=== PATIENT | female | born 1990 | race African-American/Black ===

== ENCOUNTER 2017-03-10 11:54 | Emergency (ER) | payer BC, OTHER ==
[~2017-03-10] VITALS: Ht 162.6 cm; Wt 54.4 kg
[2017-03-10 12:32] VITALS: BP 127/89
--- NOTE | 2017-03-10 12:59 | PHYS DOC ---
Past Medical History Past Medical History: No Pertinent History, Migraines Past Surgical History: Additional Past Surgical Histo: c/s x4 Alcohol Use: Occasionally Drug Use: None Adult General Chief Complaint Chief Complaint: NAUSEA/VOMITING/DIARRHA HPI HPI Patient is a 27 year old female presents to the emergency department stating this morning when she got she states she did not feel quite right. She states that she vomited around 7:00 this morning she states that she went ahead and went to work and started having some palpitations and feeling as though she was having difficulty breathing. She states that she got to work and threw up around 10:00. She did try to drink some Sprite with no relief. She states that she was unable to keep it down. Patient states she does have a history of anxiety issues. Patient states that she will also need a note for work today. Review of Systems Review of Systems Constitutional: Denies fever or chills [] Eyes: Denies change in visual acuity, redness, or eye pain [] HENT: Denies nasal congestion or sore throat [] Respiratory: Denies cough c/o shortness of breath with heart racing Cardiovascular: No additional information not addressed in HPI [] GI: Denies abdominal pain, bloody stools or diarrhea. C/o nausea and vomiting x 2 today : Denies dysuria or hematuria [] Musculoskeletal: Denies back pain or joint pain [] Integument: Denies rash or skin lesions [] Neurologic: Denies headache, focal weakness or sensory changes [] Endocrine: Denies polyuria or polydipsia [] Current Medications Current Medications Current Medications Medications (Trade) Dose Ordered Sig/[facility] Start Time Stop Time Status Last Admin Dose Admin Hydroxyzine Pamoate (Vistaril) 50 mg 1X ONCE 03/10/17 13:15 03/10/17 13:16 DC 03/10/17 13:17 50 MG Allergies Allergies Allergies Coded Allergies Type Severity Reaction Last Updated Verified iodine Allergy Intermediate rash 12/12/14 Yes Physical Exam Physical Exam Constitutional: Well developed, well nourished, no acute distress, non-toxic appearance. [] HENT: Normocephalic, atraumatic, bilateral external ears normal, oropharynx moist, no oral exudates, nose normal. [] Eyes: PERRLA, EOMI, conjunctiva normal, no discharge. [] Neck: Normal range of motion, no tenderness, supple, no stridor. [] Cardiovascular:Heart rate regular rhythm, no murmur [] Lungs & Thorax: Bilateral breath sounds clear to auscultation [] Abdomen: Bowel sounds hypoactive, soft, no tenderness, no masses, no pulsatile masses. [] Skin: Warm, dry, no erythema, no rash. [] Back: No tenderness Extremities: No tenderness, no cyanosis, no clubbing, ROM intact, no edema. [] Neurologic: Alert and oriented X 3, normal motor function, normal sensory function, no focal deficits noted. [] Psychologic: Affect normal, judgement normal, mood normal. [] Current Patient Data Vital Signs Vital Signs Date Time Temp Pulse Resp B/P (MAP) Pulse Ox O2 Delivery O2 Flow Rate FiO2 03/10/17 12:32 98.0 72 18 127/89 (102) 100 98.0 Lab Values Laboratory Tests Test 03/10/17 11:59 03/10/17 12:45 POC Urine HCG, Qualitative Hcg negative (Negative) Urine Collection Type Unknown Urine Color Yellow Urine Clarity Clear Urine pH 5.0 Urine Specific [place] <=1.005 Urine Protein Negative mg/dL (NEG-TRACE) Urine Glucose (UA) Negative mg/dL (NEG) Urine Ketones (Stick) Negative mg/dL (NEG) Urine Blood Moderate (NEG) Urine Nitrite Negative (NEG) Urine Bilirubin Negative (NEG) Urine Urobilinogen Dipstick 0.2 mg/dL (0.2 mg/dL) Urine Leukocyte Esterase Negative (NEG) Urine RBC 1-2 /HPF (0-2) Urine WBC 0 /HPF (0-4) Urine Squamous Epithelial Cells Few /LPF Urine Bacteria Few /HPF (0-FEW) EKG EKG [] Radiology/Procedures Radiology/Procedures [] Course & Med Decision Making Course & Med Decision Making Pertinent Labs and Imaging studies reviewed. (See chart for details) Patient states that she is feeling much better and is ready to be discharged home. She is now requesting 2 days off of work. Patient will be discharged with recommendations to follow-up with a primary care physician in the next week. Signs and symptoms to return back to emergency department as been provided. Patient was encouraged to have a clear liquid diet for the next 24 hours. She' ll be discharged home on questions and concerns been answered at patient's bedside. [] Jenn Disclaimer Dragon Disclaimer This electronic medical record was generated, in whole or in part, using a voice recognition dictation system. Departure Departure Impression: Primary Impression: Anxiety Disposition: 01 HOME, SELF-CARE Condition: STABLE Referrals: NO PCP (PCP) Patient Instructions: Anxiety and Panic Attacks, [id number] Additional Instructions: Activity as tolerated. Learn relaxation techniques to prevent your anxiety. Clear liquid diet for the next 24 hours and she'll been nauseated and vomiting. Follow-up with your primary care physician in the next week. Return back to emergency prior signs symptoms of become worse. TIFFANY MO SHOT GRINDER OPERATOR Mar 10, 2017 12:58
[2017-03-10] MEDS ORDERED: hydrOXYzine PAMOATE 25 MG CAPSULE PO ONE (13:15)
[2017-03-10 13:23] LABS: BILIRUBIN,URINE NEGATIVE (NEG); GLUCOSE,URINE NEGATIVE (NEG); NITRITE,URINE NEGATIVE (NEG); PROTEIN,URINE NEGATIVE (NEG-TRACE); UROBILINOGEN,URINE 0.2 mg/dL (0.2 mg/dL)
[2017-03-10 13:24] LABS: BACTERIA,URINE FEW /HPF (0-FEW); SQUAMOUS EPITHELIAL CELL,UR FEW /LPF; WBC,URINE 0 /HPF (0-4)
== END 2017-03-10 14:59 | disposition home or self-care (01) ==
LOC: ER 11:54
DX: F41.9 Anxiety disorder, unspecified (principal); G43.909 Migraine, unspecified, not intractable, without status migrainosus
CPT/HCPCS: 81001; 81025; 99283; Q0177

== ENCOUNTER 2018-03-15 20:11 | Emergency (ER) | payer SELFPAY ==
[~2018-03-15] VITALS: Ht 167.6 cm; Wt 61.2 kg
[2018-03-15 21:11] VITALS: BP 117/58
--- NOTE | 2018-03-15 21:33 | PHYS DOC ---
Past Medical History Past Medical History: No Pertinent History, Migraines Past Surgical History: Additional Past Surgical Histo: c/s x4 Alcohol Use: Occasionally Drug Use: None Adult General Chief Complaint Chief Complaint: SORE THROAT HPI HPI Patient is a 28 year old -[place] female who presents to emergency department with complaints of a sore throat for the last day and a half. She denies any fever, cough, nasal congestion, runny nose, ear pain, rash, body aches, nausea, vomiting, or diarrhea. 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 Patient states that her boss sent her home when she complained of a sore throat earlier today and that she needs to be cleared before she can return to work. Review of Systems Review of Systems Constitutional: Denies fever or chills [] Eyes: Denies change in visual acuity, redness, or eye pain [] HENT: Denies nasal congestion , ear pain, or runny nose; reports sore throat for a day and half Respiratory: Denies cough, wheezing, or shortness of breath [] GI: Denies abdominal pain, nausea, vomiting, or diarrhea [] Integument: Denies rash or skin lesions [] Neurologic: Denies headache, focal weakness or sensory changes [] Allergies Allergies Allergies Coded Allergies Type Severity Reaction Last Updated Verified iodine Allergy Intermediate rash 12/12/14 Yes Physical Exam Physical Exam Constitutional: Well developed, well nourished, no acute distress, non-toxic appearance. [] HENT: Normocephalic, atraumatic, bilateral external ears normal, bilateral TMs normal, no erythema of posterior pharynx, oropharynx moist, no oral exudates, nose normal. [] Eyes: PERRLA,conjunctiva normal, no discharge. [] Neck: Normal range of motion, no tenderness, no lymphadenopathy, supple, no stridor. [] Cardiovascular:Heart rate regular rhythm, no murmur [] Lungs & Thorax: Bilateral breath sounds clear to auscultation [] Skin: Warm, dry, no erythema, no rash. [] Neurologic: Alert and oriented X 3, normal motor function, normal sensory function, no focal deficits noted. [] Psychologic: Affect normal, judgement normal, mood normal. [] Current Patient Data Vital Signs Vital Signs Date Time Temp Pulse Resp B/P (MAP) Pulse Ox O2 Delivery O2 Flow Rate FiO2 03/15/18 21:11 97.9 91 18 117/58 (77) 98 Room Air 97.9 EKG EKG [] Radiology/Procedures Radiology/Procedures [] Course & Med Decision Making Course & Med Decision Making Pertinent Labs and Imaging studies reviewed. (See chart for details) Patient is a 28-year-old female who presented to the emergency room with complaints of a sore throat for the last day and a half. Her vital signs are stable in the emergency department, rapid strep was negative. Physical exam is not concerning for strep pharyngitis. She encouraged to do warm saltwater gargles as needed for relief of discomfort. May take Tylenol or ibuprofen as needed for pain. Follow-up with primary care doctor in 1 -2 days. Return to the emergency room if symptoms are worsening. Patient verbalized an understanding of home care, medications, follow-up, and return to ED instructions and was in agreement with the plan of care. [] Dragon Disclaimer Dragon Disclaimer This electronic medical record was generated, in whole or in part, using a voice recognition dictation system. Departure Departure Impression: Primary Impression: Pharyngitis Disposition: HOME, SELF-CARE Condition: STABLE Referrals: NO PCP (PCP) Patient Instructions: Viral Pharyngitis Additional Instructions: Recommend warm saltwater gargles as needed for relief of discomfort. May take Tylenol or ibuprofen as needed for pain. Follow-up with primary care doctor in 1 -2 days. Return to the emergency room if symptoms are worsening. [] Problem Qualifiers Primary Impression: Pharyngitis Pharyngitis/tonsillitis etiology: unspecified etiology Qualified Codes: J02.9 - Acute pharyngitis, unspecified HORTENCIA POOLE NUCLE[employer] SECURITY OFFICER Mar 15, 2018 21:33
== END 2018-03-15 21:41 | disposition home or self-care (01) ==
LOC: ER 20:11
DX: J02.9 Acute pharyngitis, unspecified (principal); G43.909 Migraine, unspecified, not intractable, without status migrainosus; Z98.890 Other specified postprocedural states; Z91.041 Radiographic dye allergy status
CPT/HCPCS: 87070; 87880; 99283

== ENCOUNTER 2018-11-23 14:26 | Emergency (ER) | payer SELFPAY ==
[~2018-11-23] VITALS: Ht 162.6 cm; Wt 65.8 kg
[2018-11-23] MEDS ORDERED: AMOX1TAB61 PO (15:14)
--- NOTE | 2018-11-23 15:14 | PHYS DOC ---
Past Medical History Past Medical History: No Pertinent History, Migraines Past Surgical History: , Tubal ligation Additional Past Surgical Histo: c/s x4 Smoking: Quit Greater Than 1 Year Alcohol Use: Occasionally Drug Use: None Adult General Chief Complaint Chief Complaint: DENTAL PROBLEM HPI HPI She is a 28-year-old female that presents with dental pain this lasted a day and a half. Rates her pain 10 out of 10 and states it is sharp and throbbing. Denies associated symptoms. Has dental appointment scheduled for in the morning. Review of Systems Review of Systems Constitutional: Denies fever or chills [] Eyes: Denies change in visual acuity, redness, or eye pain [] HENT: Denies nasal congestion or sore throat. Reports dental pain. Respiratory: Denies cough or shortness of breath [] Cardiovascular: No additional information not addressed in HPI [] GI: Denies abdominal pain, nausea, vomiting, bloody stools or diarrhea [] : Denies dysuria or hematuria [] Musculoskeletal: Denies back pain or joint pain [] Integument: Denies rash or skin lesions [] Neurologic: Denies headache, focal weakness or sensory changes [] Endocrine: Denies polyuria or polydipsia [] Complete systems were reviewed and found to be within normal limits, except as documented in this note. Current Medications Current Medications Current Medications Medications (Trade) Dose Ordered Sig/Ap Start Time Stop Time Status Last Admin Dose Admin Bupivacaine HCl (Sensorcaine-Mpf 0.25%) 10 ml 1X ONCE 11/23/18 15:15 11/23/18 15:16 DC 11/23/18 15:15 10 ML Allergies Allergies Allergies Coded Allergies Type Severity Reaction Last Updated Verified iodine Allergy Intermediate rash 12/12/14 Yes Physical Exam Physical Exam Constitutional: Well developed, well nourished, no acute distress, non-toxic appearance. [] HENT: Normocephalic, atraumatic, bilateral external ears normal, oropharynx moist, no oral exudates, nose normal. Cavity and infection at tooth # 32 on the lower right side. Eyes: PERRLA, EOMI, conjunctiva normal, no discharge. [] Neck: Normal range of motion, no tenderness, supple, no stridor. [] Cardiovascular:Heart rate regular rhythm, no murmur [] Lungs & Thorax: Bilateral breath sounds clear to auscultation [] Abdomen: Bowel sounds normal, soft, no tenderness, no masses, no pulsatile masses. [] Skin: Warm, dry, no erythema, no rash. [] Back: No tenderness, no CVA tenderness. [] Extremities: No tenderness, no cyanosis, no clubbing, ROM intact, no edema. [] Neurologic: Alert and oriented X 3, normal motor function, normal sensory function, no focal deficits noted. [] Psychologic: Affect normal, judgement normal, mood normal. [] Current Patient Data Vital Signs Vital Signs Date Time Temp Pulse Resp B/P (MAP) Pulse Ox O2 Delivery O2 Flow Rate FiO2 11/23/18 14:35 98.2 62 14 127/68 (87) 99 Room Air 98.2 EKG EKG [] Radiology/Procedures Radiology/Procedures Performed an inferior alveolar nerve block. Injected 2 mL of Bupivacaine. Course & Med Decision Making Course & Med Decision Making Pertinent Labs and Imaging studies reviewed. (See chart for details) Discussed with patients the options based on signs and symptoms and will perform a dental block. Patient is agreeable. She will then follow up with [facility] for her pre-existing appointment in the morning. Dragon Disclaimer Dragon Disclaimer This electronic medical record was generated, in whole or in part, using a voice recognition dictation system. Departure Departure Impression: Primary Impression: Pain, dental Disposition: 01 HOME, SELF-CARE Condition: STABLE Referrals: MATI PERALES MD (PCP) Patient Instructions: Dental Pain, [id number] Additional Instructions: Follow up for your dental appointment tomorrow. Scripts Hydrocodone/Apap 5-325 (NORCO 5-325 TABLET) 1 Each Tablet 1 TAB PO TID PRN for PAIN for 1 Day, #3 TAB Prov: ZEYAD CASTAÑEDA APRN 11/23/18 Amoxicillin/Potassium Clav (AUGMENTIN 875-125 TABLET) 1 Each Tablet 1 TAB PO BID for 7 Days, #14 TAB Prov: ZEYAD CASTAÑEDA APRN 11/23/18 ZEYAD CASTAÑEDA APRN November 23, 2018 15:14
[2018-11-23] MEDS ORDERED: BUPIVACAINE MPF 0.25% 10 ML VIAL. IJ ONE (15:15)
[2018-11-23] MEDS ORDERED: HYDR-3164 PO (15:55)
== END 2018-11-23 16:05 | disposition home or self-care (01) ==
LOC: ER 14:26
DX: K08.89 Other specified disorders of teeth and supporting structures (principal); G43.909 Migraine, unspecified, not intractable, without status migrainosus; Z98.890 Other specified postprocedural states; Z98.51 Tubal ligation status; Z87.891 Personal history of nicotine dependence; Z91.041 Radiographic dye allergy status
CPT/HCPCS: 64400; 99284; J3490

== ENCOUNTER 2019-04-18 23:46 | Emergency (ER) | payer SELFPAY ==
[~2019-04-18] VITALS: Ht 162.6 cm; Wt 59.0 kg
[~2019-04-18 23:46] MED LIST: AMOX1TAB61 PO; HYDR-3164 PO
[2019-04-19] VITALS: BP 127/64
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
[2019-04-19] MEDS ORDERED: TRAM50TA PO (02:49)
[2019-04-19] MEDS ORDERED: TETRACAINE 0.5% OPHTH SOLUTION 4ML BOTTLE. OD ONE (03:30)
[2019-04-19] MEDS ORDERED: FLUORESCEIN OPHTH TEST STRIP. OD ONE (03:30)
[2019-04-19] MEDS ORDERED: KETOROLAC 60 MG/2 ML VIAL. IM ONE (04:00)
== END 2019-04-19 03:47 | disposition home or self-care (01) ==
LOC: ER 23:46
DX: S00.83XA Contusion of other part of head, initial encounter (principal); S00.11XA Contusion of right eyelid and periocular area, initial encounter; H57.89 Other specified disorders of eye and adnexa; G43.909 Migraine, unspecified, not intractable, without status migrainosus; Z88.8 Allergy status to other drugs, medicaments and biological substances; W51.XXXA Accidental striking against or bumped into by another person, initial encounter; Y93.89 Activity, other specified; Y92.89 Other specified places as the place of occurrence of the external cause; Y99.8 Other external cause status
CPT/HCPCS: 70450; 70486; 96372; 99284; J1885

== ENCOUNTER 2020-05-26 12:45 | Emergency (ER) | payer SELFPAY ==
[~2020-05-26] VITALS: Ht 162.6 cm; Wt 63.0 kg
[~2020-05-26 12:45] MED LIST changes: +TRAM50TA PO
[2020-05-26 14:00] LABS: BASO # 0.1 x10^3/uL (0.0-0.2); BASO % 1 % (0-3); EOS # 0.2 x10^3/uL (0.0-0.7); EOS % 3 % (0-3); HEMATOCRIT 32.4 % (36.0-47.0); LYMPH # 1.7 x10^3/uL (1.0-4.8); LYMPH % 22 % (24-48); MEAN CORPUSCULAR HEMOGLOBIN 30 pg (25-35); MEAN CORPUSCULAR HGB CONC 34 g/dL (31-37); MEAN CORPUSCULAR VOLUME 89 fL (79-100); MONO # 0.8 x10^3/uL (0.0-1.1); MONO % 10 % (0-9); NEUT # 4.9 x10^3/uL (1.8-7.7); NEUT % 64 % (31-73); PLATELET COUNT 291 x10^3/uL (140-400); RED BLOOD COUNT 3.64 x10^6/uL (3.50-5.40); RED CELL DISTRIBUTION WIDTH 14.4 % (11.5-14.5); WHITE BLOOD COUNT 7.6 x10^3/uL (4.0-11.0)
[2020-05-26] MEDS ORDERED: IV NORMAL SALINE 1000ML BAG 1,000 ML IV ONE (14:00)
[2020-05-26] MEDS ORDERED: ONDANSETRON PF 4 MG/2 ML VIAL. IVP ONE (14:00)
[2020-05-26 14:01] LABS: CALCIUM 8.9 mg/dL (8.5-10.1); CREATININE 0.9 mg/dL (0.6-1.0); GFR 87.8; POTASSIUM 3.4 mmol/L (3.5-5.1)
[2020-05-26 14:07] LABS: ALBUMIN 3.7 g/dL (3.4-5.0); ALBUMIN/GLOBULIN RATIO 1.1 (1.0-1.7); TOTAL BILIRUBIN 0.3 mg/dL (0.2-1.0); TOTAL PROTEIN 7.1 g/dL (6.4-8.2)
[2020-05-26] MEDS ORDERED: DIPH1TAB PO (15:17)
[2020-05-26] MEDS ORDERED: ONDA4TAB7 PO (15:17)
--- NOTE | 2020-05-26 15:17 | ED.ADGEN ---
Past Medical History Past Medical History: Bronchitis, Migraines Past Surgical History: , Tubal ligation Additional Past Surgical Histo: c/s x4 Smoking Status: Current Some Day Smoker Alcohol Use: None Drug Use: None General Adult EDM: Chief Complaint: ABDOMINAL PAIN HPI: HPI: Patient is a 30-year-old female who presents to the emergency room complaining of diarrhea, nausea, vomiting. She states that this started a couple days ago after eating [employer] chicken. She has been able to continue to eat and drink without difficulty. She states that the vomiting has been mild. She is having multiple episodes of diarrhea a day. She occasionally gets some discomfort with the vomiting or diarrhea but otherwise does not have any abdominal pain. She does not have any fever. She denies URI symptoms, chest pain, shortness of breath, chills, sweats, dysuria, hematuria, vaginal discharge, vaginal bleeding, concerns about STDs. Review of Systems: Review of Systems: Complete ROS is negative unless otherwise documented in HPI Current Medications: Current Medications Medications (Trade) Dose Ordered Sig/Ap Start Time Stop Time Status Last Admin Dose Admin Ondansetron HCl (Zofran) 4 mg 1X ONCE 05/26/20 14:00 05/26/20 14:01 DC 05/26/20 14:05 4 MG Sodium Chloride 1,000 ml @ 1,000 mls/hr 1X ONCE 05/26/20 14:00 05/26/20 14:59 DC 05/26/20 14:05 1,000 MLS/HR Allergies: Allergies: Allergies Coded Allergies Type Severity Reaction Last Updated Verified iodine Allergy Intermediate rash 12/12/14 Yes Physical Exam: PE: General: Awake, alert, NAD. Well Nourished, well hydrated. Cooperative HEENT: Atraumatic, EOMI, PERRL, airway patent, moist oral mucosa Neck: Supple, trachea midline Respiratory: CTA bilaterally, normal effort, no wheezing/crackles CV: RRR, no murmur, cap refill <2 GI: Soft, nondistended, nontender, no masses MSK: No obvious deformities Skin: Warm, dry, intact Neuro: A&O x3, speech NL, sensory and motor grossly intact, no focal deficits Psych: Normal affect, normal mood, not suicidal or homicidal Current Patient Data: Labs: Laboratory Tests Test 05/26/20 13:17 05/26/20 13:41 05/26/20 15:51 POC Urine HCG, Qualitative Hcg negative (Negative) White Blood Count 7.6 x10^3/uL (4.0-11.0) Red Blood Count 3.64 x10^6/uL (3.50-5.40) Hemoglobin 11.0 g/dL (12.0-15.5) L Hematocrit 32.4 % (36.0-47.0) L Mean Corpuscular Volume 89 fL (79-100) Mean Corpuscular Hemoglobin 30 pg (25-35) Mean Corpuscular Hemoglobin Concent 34 g/dL (31-37) Red Cell Distribution Width 14.4 % (11.5-14.5) Platelet Count 291 x10^3/uL (140-400) Neutrophils (%) (Auto) 64 % (31-73) Lymphocytes (%) (Auto) 22 % (24-48) L Monocytes (%) (Auto) 10 % (0-9) H Eosinophils (%) (Auto) 3 % (0-3) Basophils (%) (Auto) 1 % (0-3) Neutrophils # (Auto) 4.9 x10^3/uL (1.8-7.7) Lymphocytes # (Auto) 1.7 x10^3/uL (1.0-4.8) Monocytes # (Auto) 0.8 x10^3/uL (0.0-1.1) Eosinophils # (Auto) 0.2 x10^3/uL (0.0-0.7) Basophils # (Auto) 0.1 x10^3/uL (0.0-0.2) Sodium Level 140 mmol/L (136-145) Potassium Level 3.4 mmol/L (3.5-5.1) L Chloride Level 106 mmol/L (98-107) Carbon Dioxide Level 23 mmol/L (21-32) Anion Gap 11 (6-14) Blood Urea Nitrogen 6 mg/dL (7-20) L Creatinine 0.9 mg/dL (0.6-1.0) Estimated GFR (Cockcroft-Gault) 87.8 BUN/Creatinine Ratio 7 (6-20) Glucose Level 92 mg/dL (70-99) Calcium Level 8.9 mg/dL (8.5-10.1) Total Bilirubin 0.3 mg/dL (0.2-1.0) Aspartate Amino Transferase (AST) 18 U/L (15-37) Alanine Aminotransferase (ALT) 22 U/L (14-59) Alkaline Phosphatase 61 U/L (46-116) Total Protein 7.1 g/dL (6.4-8.2) Albumin 3.7 g/dL (3.4-5.0) Albumin/Globulin Ratio 1.1 (1.0-1.7) Lipase 100 U/L (73-393) Urine Collection Type Unknown Urine Color Yellow Urine Clarity Clear Urine pH 7.5 (<5.0-8.0) Urine Specific [place] 1.015 (1.000-1.030) Urine Protein Negative mg/dL (NEG-TRACE) Urine Glucose (UA) Negative mg/dL (NEG) Urine Ketones (Stick) 15 mg/dL (NEG) Urine Blood Negative (NEG) Urine Nitrite Negative (NEG) Urine Bilirubin Negative (NEG) Urine Urobilinogen Dipstick 1.0 mg/dL (0.2 mg/dL) Urine Leukocyte Esterase Small (NEG) Urine RBC 0 /HPF (0-2) Urine WBC 11-20 /HPF (0-4) Urine Squamous Epithelial Cells Many /LPF Urine Bacteria Few /HPF (0-FEW) Urine Mucus Slight /LPF Laboratory Tests 05/26/20 13:41 Laboratory Tests 05/26/20 13:41 Vital Signs: Vital Signs Date Time Temp Pulse Resp B/P (MAP) Pulse Ox O2 Delivery O2 Flow Rate FiO2 05/26/20 15:42 68 140/95 (110) 99 Room Air 05/26/20 13:09 98.2 16 98.2 EKG: EKG: [] Heart Score: Risk Factors: Risk Factors: DM, Current or recent (<one month) smoker, HTN, HLP, family history of CAD, obesity. Risk Scores: Score 0 - 3: 2.5% MACE over next 6 weeks - Discharge Home Score 4 - 6: 20.3% MACE over next 6 weeks - Admit for Clinical Observation Score 7 - 10: 72.7% MACE over next 6 weeks - Early Invasive Strategies Radiology/Procedures: Radiology/Procedures: [] Course & Med Decision Making: Course & Med Decision Making Pertinent Labs and Imaging studies reviewed. (See chart for details) Patient is a 30-year-old female who presents to the emergency room complaining of diarrhea and intermittent vomiting. Overall patient is well-appearing. She was given fluids and nausea medication with significant improvement in symptoms. Abdominal labs were done to evaluate for infection, liver dysfunction, gallbladder dysfunction, pancreatitis, UTIs. Lab work is unremarkable. Will treat symptomatically. Patient's test results and vitals while in the ED were fully reviewed and discussed with the patient. Patient is stable and at this time does not need admission to the hospital. We have discussed strict return precautions and the importance of following up with their Primary Care Physician. Patient stated understanding and was given an opportunity to ask any questions. Patient is in agreement with plan. Dragon Disclaimer: Dragon Disclaimer: This electronic medical record was generated, in whole or in part, using a voice recognition dictation system. Departure Departure Impression: Primary Impression: Gastroenteritis Disposition: 01 DC HOME SELF CARE/HOMELESS Condition: STABLE Referrals: MATI PERALES MD (PCP) Patient Instructions: Diarrhea, Diet for Diarrhea, Adult Scripts Diphenoxylate Hcl/Atropine (LOMOTIL TABLET) 1 Each Tablet 1 TAB PO TID PRN for DIARRHEA, #10 TAB Prov: CHUN ABRAMS MD 05/26/20 Ondansetron Hcl (ZOFRAN) 4 Mg Tablet 1 TAB PO PRN Q6-8HRS for nausea, #12 TAB Prov: CHUN ABRAMS MD 05/26/20 CHUN ABRAMS MD May 26, 2020 15:17
[2020-05-26 15:42] VITALS: BP 140/95
[2020-05-26 16:06] LABS: BILIRUBIN,URINE NEGATIVE (NEG); CLARITY,URINE CLEAR; COLOR,URINE YELLOW; NITRITE,URINE NEGATIVE (NEG); PH,URINE 7.5 (<5.0-8.0); PROTEIN,URINE NEGATIVE (NEG-TRACE)
[2020-05-26 16:32] LABS: BACTERIA,URINE FEW /HPF (0-FEW); RBC,URINE 0 /HPF (0-2)
== END 2020-05-26 16:54 | disposition home or self-care (01) ==
LOC: ER 12:45
DX: K52.9 Noninfective gastroenteritis and colitis, unspecified (principal); R11.2 Nausea with vomiting, unspecified; G43.909 Migraine, unspecified, not intractable, without status migrainosus; J42 Unspecified chronic bronchitis; Z98.51 Tubal ligation status; Z98.890 Other specified postprocedural states; Z87.891 Personal history of nicotine dependence; Z91.041 Radiographic dye allergy status
CPT/HCPCS: 36415; 80053; 81001; 81025; 83690; 85025; 96361; 96374; 99285; J2405; J7030

== ENCOUNTER 2020-09-11 05:33 | Emergency (ER) | payer SELFPAY ==
[~2020-09-11] VITALS: Ht 162.6 cm; Wt 63.6 kg
[~2020-09-11 05:33] MED LIST changes: +DIPH1TAB PO; +ONDA4TAB7 PO
[2020-09-11 05:43] VITALS: BP 139/76
[2020-09-11] MEDS ORDERED: AMOX1TAB61 PO (06:06)
[2020-09-11] MEDS ORDERED: PRED20TA PO (06:06)
[2020-09-11] MEDS ORDERED: CHLO15MO2 PO (06:06)
--- NOTE | 2020-09-11 06:06 | PHYS DOC ---
Past Medical History Past Medical History: Bronchitis, Migraines Past Surgical History: , Tubal ligation Additional Past Surgical Histo: c/s x4 Smoking Status: Current Some Day Smoker Alcohol Use: Occasionally Drug Use: None General Adult EDM: Chief Complaint: DENTAL PROBLEM HPI: HPI: 30-year-old female presents with 3 to 4-day history of left mandibular molar pain. Patient with known dental caries. Denies any fever or chills. Patient reports she has a dentist appointment at noon today however upon waking this morning she had some increased discomfort and concern for swelling on left side that prompted her to present to the ER for evaluation. Denies any trauma. Denies . Reports history of tubal ligation. Patient reports she does occasionally smoke. Reports has been previously taking [id number] ibuprofen and Tylenol for the pain which has not been helping. Patient denies taking any medication prior to arrival this morning. Review of Systems: Review of Systems: Constitutional: Denies fever or chills Eyes: Denies redness or eye pain HENT: Denies nasal congestion or sore throat; reports dental pain Respiratory: Denies cough or shortness of breath Cardiovascular: Denies chest pain or palpitations GI: Denies abdominal pain, nausea, or vomiting : Denies dysuria or hematuria Musculoskeletal: Denies back pain or joint pain Integument: Denies rash or skin lesions Neurologic: Denies headache, focal weakness or sensory changes Complete systems were reviewed and found to be within normal limits, except as documented in this note. Allergies: Allergies: Allergies Coded Allergies Type Severity Reaction Last Updated Verified iodine Allergy Intermediate rash 12/12/14 Yes Physical Exam: PE: Constitutional: Well developed, well nourished, no acute distress, non-toxic appearance HENT: Normocephalic, atraumatic, significant dental caries noted throughout, left mandibular second molar with moderate dental mindi, no fluctuance noted. Eyes: Conjunctiva normal, no discharge Neck: Normal range of motion, no tenderness, supple Lungs & Thorax: No respiratory distress, equal chest rise and fall Skin: Warm, dry, no erythema, no rash Extremities: No tenderness, ROM intact Neurologic: Alert and oriented X 3, no focal deficits noted Psychologic: Affect normal, judgment normal Current Patient Data: Vital Signs: Vital Signs Date Time Temp Pulse Resp B/P (MAP) Pulse Ox O2 Delivery O2 Flow Rate FiO2 09/11/20 05:43 97.5 67 18 139/76 (97) 99 Room Air 97.5 EKG: EKG: [] Radiology/Procedures: Radiology/Procedures: [] Course & Med Decision Making: Course & Med Decision Making Patient presents with HPI and physical exam consistent for dentalgia with significant dental caries. No fluctuance or drainable abscess appreciated. Pain addressed with IM ketorolac. Oral dexamethasone also provided for symptomatic relief. Empiric antibiotic initiated. Patient stable for discharge with outpatient follow-up with PCP/dentist. Patient with appointment today at noon with her dentist. Discussed findings and plan with patient and family, who acknowledge understanding and agreement. Dragon Disclaimer: Dragon Disclaimer: This electronic medical record was generated, in whole or in part, using a voice recognition dictation system. Departure Departure Impression: Primary Impression: Dentalgia Additional Impression: Dental caries Disposition: HOME SELF CARE/HOMELESS Condition: STABLE Referrals: MATI PERALES MD (PCP) Patient Instructions: Dental Caries, Toothache-Brief Scripts Chlorhexidine Gluconate (PERIDEX) 15 Ml Mouthwash 15 ML PO BID, #473 ML 0 Refills Prov: ZEYAD AMOR DO 09/11/20 Prednisone (PREDNISONE) 20 Mg Tablet 2 TAB PO DAILY, #8 TAB Start this prescription tomorrow, Friday09/12/20 Prov: ZEYAD AMOR DO 09/11/20 Amoxicillin/Potassium Clav (AUGMENTIN 875-125 TABLET) 1 Each Tablet 1 TAB PO BID, #14 TAB Prov: ZEYAD AMOR DO 09/11/20 ZEYAD AMOR DO Sep 11, 2020 06:06
[2020-09-11] MEDS ORDERED: AMOXICILLIN/K CLAV 875/125MG TABLET. PO ONE (06:15)
[2020-09-11] MEDS ORDERED: DEXAMETHASONE 4 MG TABLET PO ONE (06:15)
[2020-09-11] MEDS ORDERED: KETOROLAC 30 MG/ML VIAL. IM ONE (06:15)
== END 2020-09-11 06:31 | disposition home or self-care (01) ==
LOC: ER 05:33
DX: K08.89 Other specified disorders of teeth and supporting structures (principal); K02.9 Dental caries, unspecified; R60.0 Localized edema; G43.909 Migraine, unspecified, not intractable, without status migrainosus; J42 Unspecified chronic bronchitis; Z98.51 Tubal ligation status; Z98.890 Other specified postprocedural states; Z87.891 Personal history of nicotine dependence; Z91.040 Latex allergy status
CPT/HCPCS: 96372; 99283; J1885